=== PATIENT | female | born 2000 | race Caucasian/White ===

== ENCOUNTER 2023-12-21 10:31 | Outpatient (CLI) | payer BC | END 2023-12-21 10:32 | disposition home or self-care (01) | LOC: CSHULT 10:31 | PROVIDERS: ATTEND Urology | DX: N20.0 Calculus of kidney (principal); N28.89 Other specified disorders of kidney and ureter | CPT/HCPCS: 76770 ==

== ENCOUNTER 2024-01-12 09:19 | Emergency (ER) | payer BC ==
[2024-01-12] MEDS ORDERED: diphenhydrAMINE 25 MG CAP ONE (09:53)
[2024-01-12] MEDS ORDERED: Famotidine 20 MG TAB ONE ×2 (09:58→10:03)
[2024-01-12] MEDS ORDERED: Metoclopramide HCl 10 MG TAB ONE (10:33)
== END 2024-01-12 12:00 | disposition home or self-care (01) ==
LOC: CSHERS 09:19
DX: O99.711 Diseases of the skin and subcutaneous tissue complicating pregnancy, first trimester (principal); L50.0 Allergic urticaria; Z3A.01 Less than 8 weeks gestation of pregnancy
CPT/HCPCS: 99282

== ENCOUNTER 2024-08-25 08:14 | Inpatient (IN) | payer BC, MEDICAID ==
[2024-08-28 18:52] VITALS: BMI 27.4
[2024-08-28] MEDS ORDERED: Zolpidem Tartrate 5 MG TAB PO PRN (21:11)
[2024-08-28] MEDS ORDERED: hydrALAZINE 20 MG/ML VIAL SLOW IVP PRN (21:11)
[2024-08-28] MEDS ORDERED: HYDROcodone/Acetaminophen 5/325 mg Tablet PO PRN (21:11)
[2024-08-28] MEDS ORDERED: Ibuprofen 800 MG TAB PO PRN (21:11)
[2024-08-28] MEDS ORDERED: Carboprost 250 MCG/ML AMP IM PRN (21:11)
[2024-08-28] MEDS ORDERED: Acetaminophen 500 MG TAB PO PRN (21:11)
[2024-08-28] MEDS ORDERED: Misoprostol 200 MCG TAB PR PRN (21:11)
[2024-08-28] MEDS ORDERED: Diphenoxylate HCl/Atropine Tablet PO PRN (21:11)
[2024-08-28] MEDS ORDERED: Promethazine HCl 25 MG/ML VIAL IM PRN (21:11)
[2024-08-28] MEDS ORDERED: Oxytocin 30 units/NS 500 ML 500 ML IV SCH ×2 (21:15)
[2024-08-28 22:06] LABS: Hematocrit 31.1 % (34.9-44.5); Hemoglobin 10.4 g/dL (12.0-15.5); Mean Corpuscular HGB CONC 33.4 g/dL (32.0-36.0); Mean Corpuscular Hemoglobin 28.8 pg (27.0-33.0); Mean Corpuscular Volume 86.1 fL (81.6-98.3); Mean Platelet Volume 10.9 fL (7.4-10.4); Platelet Count 247 10x3/uL (150-450); RBC Distribution Width 13.4 % (11.5-14.5); Red Blood Cell (RBC) Count 3.61 10x6/uL (3.90-5.03); White Blood Cell (WBC) Count 10.96 10x3/uL (3.5-10.5)
[2024-08-28] MEDS: Misoprostol 100 MCG TAB VAG SCH (22:20)
[2024-08-28 22:53] LABS: HBsAg Index 0.22 S/CO (0-0.99); Hep B Surf Ag - L&D Non-Reactive S/CO (NonReactive)
[2024-08-28 22:54] LABS: Syphilis Antibody Nonreactive (Nonreactive); Syphilis Antibody Index 0.04 S/CO (<1.00 Non-Reactive)
[2024-08-29] MEDS: fentaNYL 50 mcg/mL 1 mL Vial SLOW IVP PRN (05:02)
[2024-08-29] MEDS: Lactated Ringer's 1,000 ML IV SCH (08:40)
[2024-08-29] MEDS: Ondansetron PF 4 MG/2 ML Vial IVP PRN ×2 (09:06→21:15)
[2024-08-29] MEDS ORDERED: Promethazine HCl 25 MG/ML VIAL IM PRN ×2 (10:05→20:27)
[2024-08-29] MEDS ORDERED: Lactated Ringer's 500 ML IV PRN (10:05)
[2024-08-29] MEDS ORDERED: Naloxone HCl 0.4 mg/ml Vial IVP PRN ×2 (10:05)
[2024-08-29] MEDS ORDERED: ePHEDrine Sulfate 50 MG/10 ML VIAL SLOW IVP PRN (10:05)
[2024-08-29] MEDS ORDERED: Acetaminophen 325 MG TAB PO PRN (10:05)
[2024-08-29] MEDS ORDERED: diphenhydrAMINE 50 MG/ML VIAL IVP PRN (10:05)
[2024-08-29] MEDS ORDERED: Ondansetron PF 4 MG/2 ML Vial IVP PRN (10:05)
[2024-08-29] MEDS ORDERED: Moisturizing Cream (Eucerin) 113 GM JAR TOP PRN (10:05)
[2024-08-29] MEDS ORDERED: Communication Order-Pharmacy FS SCH (10:15)
[2024-08-29] MEDS: fentaNYL 2 mcg/Ropivacaine 0.2% Epidural 100 ML CADD EPIDURAL SCH (10:49)
[2024-08-29] MEDS: fentaNYL/Ropivacaine Epidural 100 ML ONE (11:01)
[2024-08-29] MEDS: Lidocaine 1% (PF) 30 ML VIAL SC PRN (16:00)
[2024-08-29 16:01] LABS: Analyzer IN Cardio CS NICU; pH (Cord, venous) 7.294 (7.250-7.350)
[2024-08-29] MEDS: Tranexamic Acid 1,000 MG/10 ML VIAL ONE (16:01)
[2024-08-29] MEDS: Methylergonovine 0.2 MG/ML VIAL IM PRN (16:01)
[2024-08-29 16:02] LABS: Analyzer IN Cardio CS NICU
[2024-08-29] MEDS: Dexmedetomidine 200 MCG/2 ML VIAL ONE (17:16)
[2024-08-29] MEDS: fentaNYL 50 mcg/mL 1 mL Vial ONE (17:16)
[2024-08-29] MEDS: cefOXitin 2 GM in Sodium Chloride 0.9% 100 ML IVPB SCH (17:29)
[2024-08-29] MEDS ORDERED: hydrALAZINE 20 MG/ML VIAL SLOW IVP PRN (20:27)
[2024-08-29] MEDS ORDERED: Lanolin Ointment 7 GM TUBE TOP PRN (20:27)
[2024-08-29] MEDS ORDERED: Bisacodyl 10 MG SUPP PR PRN (20:27)
[2024-08-29] MEDS ORDERED: Preparation H Ointment 28 GM TUBE PR PRN (20:27)
[2024-08-29] MEDS ORDERED: diphenhydrAMINE 25 MG CAP PO PRN (20:27)
[2024-08-29] MEDS: traMADol HCl 50 MG TAB PO PRN (20:48)
[2024-08-29] MEDS: Docusate 100 MG CAP PO SCH (20:49)
[2024-08-29] MEDS: Ferrous Sulfate 325 MG TAB PO SCH (21:20)
[2024-08-29] MEDS: Boostrix 0.5 ML (Tdap) VIAL (>/=7 yrs of age) IM ONE (21:31)
[2024-08-29] MEDS: Benzocaine-Menthol 82.5 ML CAN TOP PRN (21:40)
[2024-08-29] MEDS: Ibuprofen 800 MG TAB PO SCH (21:40)
[2024-08-30] MEDS: Prenatal Vitamin 1 TAB PO SCH (07:55)
[2024-08-30] MEDS: Milk Of Magnesia 30 ML UDCUP PO SCH (07:55)
[2024-08-30] MEDS: Ferrous Sulfate 325 MG TAB PO SCH (08:00)
[2024-08-31 08:23] VITALS: BP 128/73; TEMP 97.7
== END 2024-08-31 17:15 | disposition home or self-care (01) | DRG 768 ==
LOC: CSHLD 08-28 18:07 → CSHPP 08-29 19:35
PROVIDERS: ADMIT Student in an Organized Health Care Education/Training Program; ATTEND Student in an Organized Health Care Education/Training Program
PROC: 10D07Z3 Extraction of Products of Conception, Low Forceps, Via Natural or Artificial Opening (ICD-10-PCS; principal; 2024-08-29)
PROC: 0DQP0ZZ Repair Rectum, Open Approach (ICD-10-PCS; 2024-08-29)
PROC: 10907ZC Drainage of Amniotic Fluid, Therapeutic from Products of Conception, Via Natural or Artificial Opening (ICD-10-PCS; 2024-08-29)
PROC: 3E0P7VZ Introduction of Hormone into Female Reproductive, Via Natural or Artificial Opening (ICD-10-PCS; 2024-08-29)
DX: O70.3 Fourth degree perineal laceration during delivery (principal); Z37.0 Single live birth; Z3A.39 39 weeks gestation of pregnancy
CPT/HCPCS: 36415; 51702; 82805; 85027; 86780; 86850; 86900; 86901; 87340; J0694; J2210; J2405; J3010; J7120